=== PATIENT | female | born 1965 | race Caucasian/White ===

== ENCOUNTER → 2018-01-04 12:56 | Outpatient (CLI) | payer OTHER, SELFPAY ==
[2018-01-04 14:00] VITALS: BMI 27.6
== END ==
PROVIDERS: Visit Provider Internal Medicine
DX: R73.03 Prediabetes (principal); E66.3 Overweight; Z68.27 Body mass index [BMI] 27.0-27.9, adult
CPT/HCPCS: 97802

== ENCOUNTER → 2018-01-10 07:21 | Outpatient (CLI) | payer OTHER, SELFPAY ==
--- NOTE | 2018-01-10 | DI.US.S_ITS ---
PROCEDURE: US PELVIC COMPLETE INDICATIONS: VAGINAL PAIN TECHNIQUE: Real-time scanning was performed of the pelvic organs, with image documentation. Additional endovaginal scanning was necessary due to incomplete visualization of the adnexal and endometrial structures by transabdominal scanning. COMPARISON: None. FINDINGS: Transabdominal scanning: Limited scanning through the kidneys shows no hydronephrosis. No pathologic free abdominal or pelvic fluid. Endovaginal scanning: Uterus: Uterus is enlarged in size at 8.6 x 5.4 x 7.7 cm. The endometrium measures 6.1 mm in combined thickness. 3 intramural fibroids largest measuring 4.1 x 4.3 x 3.7 cm. The smaller measured 1.7 x 1.9 x 1.9 cm and 1.6 x 1.2 x 1.8 cm respectively. Ovaries: Simple cyst involves the right ovary measuring 1.8 x 1.2 x 1.8 cm. The left ovary is not seen. IMPRESSION: 1. Fibroid uterus as above. 2. Simple cysts involving the right ovary. Dictated by: [place] [facility] Interpreted: Martin Swanson MD on 01/10/2018 at 9:02 Approved by: Martin Swanson M.D. on 01/10/2018 at 16:43
== END ==
PROVIDERS: Visit Provider Internal Medicine
DX: D25.1 Intramural leiomyoma of uterus (principal); N83.201 Unspecified ovarian cyst, right side
CPT/HCPCS: 76830; 76856

== ENCOUNTER → 2018-05-17 15:47 | Outpatient (CLI) | payer OTHER, SELFPAY | DX: Z23 Encounter for immunization (principal) | CPT/HCPCS: 90471; 90686 ==